=== PATIENT | male | born 1995 | race Caucasian/White ===

== ENCOUNTER 2016-11-17 21:21 | Emergency (ER) | payer OTHER ==
--- NOTE | 2016-11-17 21:53 | EDPHY ---
H & P Stated Complaint: reoccuring testicular pain Time Seen by Provider: 11/17/16 21:53 HPI/ROS: CHIEF COMPLAINT: Testicular pain HISTORY OF PRESENT ILLNESS: The patient presents the ED with complaints of testicular pain. The patient reportedly has a history of epididymitis. He was seen in the emergency department last year and diagnosed with epididymitis. He was referred to urologist and treated with ciprofloxacin which apparently resulted in improvement of his symptoms within a day. The patient developed recurrent right-sided testicular pain on Wednesday and saw his urologist on Wednesday who diagnosed him with recurrent epididymitis in restarted him on ciprofloxacin. The patient became concerned because he now feels as if he has a new mass in his left testicle. He has moderate pain to tenderness in that area. He denies additional acute complaints. REVIEW OF SYSTEMS: A comprehensive 10 point review of systems is otherwise negative aside from elements mentioned in the history of present illness. Source: Patient Exam Limitations: No limitations - Personal History Current Tetanus Diphtheria and Acellular Pertussis (TDAP): Yes Tetanus Vaccine Date: <10 years - Medical/Surgical History Hx Asthma: No Hx Chronic Respiratory Disease: No Hx Diabetes: No Hx Cardiac Disease: No Hx Renal Disease: No Hx Cirrhosis: No Hx Alcoholism: No Hx HIV/AIDS: No Hx Splenectomy or Spleen Trauma: No Other PMH: depression, testicular infection (non std) - Social History Smoking Status: Current every day smoker - Physical Exam Exam: General Appearance: Alert, no distress Eyes: Pupils equal and round no pallor or injection ENT, Mouth: Mucous membranes moist Respiratory: There are no retractions, lungs are clear to auscultation Cardiovascular: Regular rate and rhythm Gastrointestinal: Abdomen is soft and nontender, no masses, bowel sounds normal Genitourinary: Right testicle demonstrates no clinical evidence of torsion, left hemiscrotum does demonstrate a palpable mass which feels to be most consistent with a varicocele, there is minimal tenderness along the structure, the left testicle demonstrates a normal lie and a normal cremaster reflex is appreciated. Neurological: A&O, normal motor function, normal sensory exam, normal cranial nerves Skin: Warm and dry, no rashes Musculoskeletal: Neck is supple nontender Extremities: symmetrical, full range of motion Constitutional: Initial Vital Signs Temperature (C) 36.2 C 11/17/16 21:37 Heart Rate 75 11/17/16 21:37 Respiratory Rate 16 11/17/16 21:37 Blood Pressure 131/77 H 11/17/16 21:37 O2 Sat (%) 97 11/17/16 21:37 O2 Delivery Mode Room Air Allergies/Adverse Reactions: No Known Allergies Allergy (Verified 01/30/16 13:18) Home Medications: Medication Instructions Recorded Ciprofloxacin [Cipro] 500 mg PO BID #20 tab 01/30/16 Diclofenac Sodium 11/17/16 oxyCODONE/APAP 5/325 [Percocet 1 - 2 tab PO Q6-8PRN PRN #20 tab 11/17/16 5/325 (RX)] Medical Decision Making - Diagnostics Imaging Results: Testicular U/S: left varicoele, no evidence of torsion. Reviewed by myself and with radiologist Dr. Barth. ED Course/Re-evaluation: I reviewed the patient's past medical records including his prior workup for testicular pain. The patient does have a known left varicocele noted on his prior ultrasound. The patient is currently taking ciprofloxacin for possible epididymitis. Plan will be for discharged home if his ultrasound today demonstrates no evidence of torsion. The patient will be provided a prescription for additional narcotic pain medications and advised to follow up with his regular urologist. Differential Diagnosis: Differential diagnosis considered includes epididymitis, testicular torsion, testicular mass, varicocele - Data Points Medications Given: Discontinued Medications Oxycodone/Acetaminophen (Percocet 5/325) 2 tab PO EDNOW ONE Stop: 11/17/16 22:16 Last Admin: 11/17/16 22:15 Dose: 2 tab Departure - Departure Disposition: Home, Routine, Self-Care Clinical Impression: Epididymitis, Varicocele Condition: Good Instructions: Epididymitis (ED) Additional Instructions: 1. Please schedule a follow-up appointment with your urologist for any unimproved symptoms past 7-10 days. 2. Your ultrasound demonstrates no evidence of a testicular torsion or other urological emergency. 3. Take Ibuprofen or Motrin 600 mg by mouth three times a day. 4. Percocet as needed for severe pain Referrals: Catina Chandler PAC [Physician [employer]] - As per Instructions Prescriptions: oxyCODONE/APAP 5/325 [Percocet 5/325 (RX)] 1 - 2 tab PO Q6-8PRN PRN #20 tab PRN Reason: for pain
[2016-11-17] MEDS ORDERED: OXYCODONE/APAP 5/325 TAB ONE (22:12)
[2016-11-17] MEDS ORDERED: OXYCODONE/APAP 5/325 TAB PO ONE (22:15)
[2016-11-17 23:44] VITALS: BP 132/50; PULSE 75; RESP 16; TEMP 97.5; O2SAT 95
== END 2016-11-17 23:43 | disposition home or self-care (01) ==
DX: N45.1 Epididymitis (principal); I86.1 Scrotal varices; F17.200 Nicotine dependence, unspecified, uncomplicated

== ENCOUNTER 2017-03-14 02:26 | Emergency (ER) | payer OTHER ==
[2017-03-14 02:33] VITALS: RESP 16
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
[2017-03-14 04:00] VITALS: BP 126/66; PULSE 66; TEMP 97.9; O2SAT 96
== END 2017-03-14 04:00 | disposition home or self-care (01) ==
PROC: 0HQ1XZZ Repair Face Skin, External Approach (ICD-10-PCS; principal; 2017-03-14)
DX: S01.81XA Laceration without foreign body of other part of head, initial encounter (principal); Z87.891 Personal history of nicotine dependence; Y04.8XXA Assault by other bodily force, initial encounter; Y92.89 Other specified places as the place of occurrence of the external cause

== ENCOUNTER 2018-11-15 09:38 | Emergency (ER) | payer BC, OTHER | END 2018-11-15 11:03 | disposition home or self-care (01) ==